=== PATIENT | male | born 1975 | race Caucasian/White ===

== ENCOUNTER → 2017-01-01 | Outpatient (CLI) | payer MEDICAID ==
[2017-01-01 09:54] LABS: Basophils % (A) 1 %; CH 30.9; CHCM 33.3; Eosinophils # (A) 0.2 k/uL (0-0.7); Eosinophils % (A) 4 %; HDW 2.25; HGB 16.3 gm/dL (13.0-17.5); Luc # (Auto) 0.19; Luc % (Auto) 5; Lymphocytes # (A) 1.7 k/uL (1.0-4.8); Lymphocytes % (A) 40 %; MCH 29.7 pg (25.0-35.0); MCHC 31.9 g/dL (31.0-37.0); MCV 93.2 fL (80.0-100.0); Mean Platelet Volume 7.3; Monocytes # (A) 0.3 k/uL (0-1.0); Monocytes % (A) 8 %; Neutrophils # (A) 1.9 k/uL (1.3-7.7); Neutrophils % (A) 44 %; RBC 5.47 m/uL (4.30-5.90); RDW 13.6 % (11.5-15.5); WBC 4.3 k/uL (3.8-10.6); WBC (Perox) 4.54
[2017-01-01 12:28] LABS: ALT 103 U/L (21-72); AST 43 U/L (17-59); Alkaline Phosphatase 59 U/L (38-126); Anion Gap 9 mmol/L; Blood Urea Nitrogen 13 mg/dL (9-20); Calcium 9.5 mg/dL (8.4-10.2); Carbon Dioxide 25 mmol/L (22-30); Chloride 108 mmol/L (98-107); Cholesterol 120 mg/dL (<200); Glucose 100 mg/dL (74-99); HDL Cholesterol 27 mg/dL (40-60); Non-African American GFR(MDRD) >60 (>60 ml/min/1.73 sqM); Potassium 4.5 mmol/L (3.5-5.1); Sodium 142 mmol/L (137-145); Total Bilirubin 0.8 mg/dL (0.2-1.3); Triglycerides 99 mg/dL (<150)
== END | disposition home or self-care (01) ==
LOC: LABWHC1 08:16
PROVIDERS: ATTEND Physician Assistant
DX: E66.9 Obesity, unspecified (principal)
CPT/HCPCS: 36415; 80053; 80061; 84439; 84443; 84481; 85025